=== PATIENT | female | born 1965 | race Caucasian/White ===

== ENCOUNTER 2017-11-06 14:03 | Emergency (ER) | payer OTHER, SELFPAY ==
[2017-11-06] MEDS ORDERED: Amoxicillin/Potassium Clav 875 MG TAB ONE (16:17)
--- NOTE | 2017-11-06 16:42 | RAD ---
RIGHT FOREARM TWO VIEWS: INDICATIONS: Right forearm injury. COMPARISON: None. FINDINGS: There is soft tissue swelling involving the radial and dorsal aspect of the mid right forearm without evidence of a radiopaque foreign body. No acute fracture is evident. Radial capitellar alignment i s normal appearing. IMPRESSION: Soft tissue swelling of the right forearm. No acute osseous abnormality. POS: [facility]
== END 2017-11-06 16:20 | disposition home or self-care (01) ==
LOC: MADERS 14:03
DX: S51.851A Open bite of right forearm, initial encounter (principal); S51.811A Laceration without foreign body of right forearm, initial encounter; W54.0XXA Bitten by dog, initial encounter; Y92.009 Unspecified place in unspecified non-institutional (private) residence as the place of occurrence of the external cause

== ENCOUNTER 2021-06-18 14:37 | Emergency (ER) | payer SELFPAY ==
[2021-06-18] MEDS ORDERED: Cephalexin 500 MG CAP ONE (15:28)
== END 2021-06-18 15:39 | disposition home or self-care (01) ==
LOC: MADERS 14:37
DX: L03.115 Cellulitis of right lower limb (principal); F17.210 Nicotine dependence, cigarettes, uncomplicated; Z79.899 Other long term (current) drug therapy
CPT/HCPCS: 99283